=== PATIENT | male | born 1965 | race Two or more races ===

== ENCOUNTER 2021-04-06 10:31 | Day surgery (SDC) | payer OTHER ==
[2021-04-04 17:15] LABS: BASOPHILS % (AUTO) 0 % (0-1); EOSINOPHILS % (AUTO) 1 % (1-7); LYMPHOCYTES % (AUTO) 32 % (22-44); MEAN CORPUSCULAR HEMOGLOBIN 32.1 pg (27.5-34.5); MEAN CORPUSCULAR HGB CONC 33.5 g/dL (33.2-36.2); MEAN PLATELET VOLUME 7.3 fL (7.4-10.4); MONOCYTES % (AUTO) 9 % (2-9); NEUTROPHILS % (AUTO) 57 % (42-75); PLATELET COUNT 225 x10^3/uL (130-400); RED BLOOD COUNT 4.64 x10^6/uL (4.38-5.82); RED CELL DISTRIBUTION WIDTH 13.9 % (9.4-14.8)
[2021-04-04 17:24] LABS: ANION GAP 3 mmol/L (5-15); CALCIUM 8.8 mg/dL (8.5-10.1); CHLORIDE 109 mmol/L (98-107); CREATININE 0.71 mg/dL (0.7-1.3)
[2021-04-04 17:27] LABS: INTERNATIONAL NORMALIZED RATIO 1.03 (0.93-1.1)
[2021-04-04 17:36] LABS: MICROSCOPIC AUTO
[~2021-04-06] VITALS: Ht 157.5 cm; Wt 66.5 kg
[~2021-04-06 10:31] MED LIST: ETAN50DI2 SC; TAMS-11 PO
[2021-04-06 11:25] VITALS: BP 101/79
[2021-04-06] MEDS ORDERED: CHLORHEXIDINE 15 ML UDC ONE (11:27)
[2021-04-06] MEDS ORDERED: LACTATED RINGERS 1,000 ML IV SCH (11:30)
[2021-04-06] MEDS ORDERED: CHLORHEXIDINE 15 ML UDC PO ONE (11:30)
[2021-04-06] MEDS ORDERED: ACETAMINOPHEN 325 MG TABLET PO PRN (12:00)
[2021-04-06] MEDS ORDERED: hydrALAzine 20 MG/ML, 1ML IV PRN (12:00)
[2021-04-06] MEDS ORDERED: MEPERIDINE/PF 25MG/0.5ML IVPush PRN (12:00)
[2021-04-06] MEDS ORDERED: HYDROmorphone 1 MG/ML, 1ML INJ IVPush PRN (12:00)
[2021-04-06] MEDS ORDERED: FENTANYL PF 100 MCG/2ML IV PRN (12:00)
[2021-04-06] MEDS ORDERED: PROMETHAZINE 25 MG/ML, 1ML IVPush PRN (12:00)
[2021-04-06] MEDS ORDERED: LABETALOL 5MG/ML, 20ML IV PRN (12:00)
[2021-04-06] MEDS ORDERED: HALOPERIDOL 5 MG/ML IV PRN (12:00)
[2021-04-06] MEDS ORDERED: OXYcodone 5 MG/5 ML ORAL.SOL UDC PO PRN (12:00)
[2021-04-06] MEDS ORDERED: DIPHENHYDRAMINE 50 MG/ML, 1ML IVPush PRN (12:00)
[2021-04-06] MEDS ORDERED: FENTANYL PF 100 MCG/2ML ONE (12:37)
[2021-04-06] MEDS ORDERED: KETOROLAC 30 MG/1 ML ONE (12:46)
[2021-04-06] MEDS ORDERED: DEXAMETHASONE 4 MG/ML, 1ML ONE (12:52)
[2021-04-06] MEDS ORDERED: CEFAZOLIN 1,000 MG ONE (12:52)
[2021-04-06] MEDS ORDERED: ONDANSETRON 2MG/ML, 2ML ONE (12:52)
[2021-04-06] MEDS ORDERED: PROPOFOL 10 MG/ML, 20ML ONE (12:52)
[2021-04-06] MEDS ORDERED: PROMETHAZINE 25 MG/ML, 1ML ONE (13:46)
== END 2021-04-06 15:05 | disposition home or self-care (01) ==
LOC: OUT 10:31
PROVIDERS: ATTEND Urology
DX: N21.0 Calculus in bladder (principal); M06.9 Rheumatoid arthritis, unspecified; N40.1 Benign prostatic hyperplasia with lower urinary tract symptoms; N13.8 Other obstructive and reflux uropathy; F17.210 Nicotine dependence, cigarettes, uncomplicated; Z20.822 Contact with and (suspected) exposure to COVID-19; Z79.899 Other long term (current) drug therapy; Z72.89 Other problems related to lifestyle; Z90.49 Acquired absence of other specified parts of digestive tract; Z98.890 Other specified postprocedural states
CPT/HCPCS: 36415; 52317; 80048; 81001; 82360; 85025; 85610; 88300; J0690; J1100; J1885; J2405; J2550; J2704; J3010; J7120; U0003; U0005